=== PATIENT | male | born 1960 ===

== ENCOUNTER 2017-03-30 07:37 | Day surgery (SDC) | payer MEDICAID ==
[2014-10-06 15:14] VITALS: BMI 29.0
[2017-03-30] MEDS ORDERED: Propofol 10 mg/ml Inj (20 ML) ONE (08:55)
[2017-03-30] MEDS ORDERED: Lidocaine 1% Inj (20ml) ONE (08:55)
[2017-03-30] MEDS ORDERED: Simethicone 40 mg/0.6 ml Liquid (30 ml) ONE (09:37)
[2017-03-30] MEDS ORDERED: Sodium Chloride 0.9% 1,000 ML IV SCH (09:45)
[2017-03-30 10:26] VITALS: BP 110/69; PULSE 58; RESP 16; TEMP 97.4; O2SAT 99
== END 2017-03-30 11:15 | disposition home or self-care (01) ==
LOC: ENDO 07:37
PROVIDERS: ATTEND Internal Medicine
DX: Z12.11 Encounter for screening for malignant neoplasm of colon (principal); D12.3 Benign neoplasm of transverse colon; K63.5 Polyp of colon; K64.8 Other hemorrhoids; E11.9 Type 2 diabetes mellitus without complications; Z79.84 Long term (current) use of oral hypoglycemic drugs
CPT/HCPCS: 45380; 82948; 88305; J2704; J7040 ×2

== ENCOUNTER 2018-06-14 16:06 | Outpatient (CLI) | payer MEDICAID | END 2018-06-14 16:07 | disposition home or self-care (01) | LOC: RAD 16:06 ==

== ENCOUNTER 2018-08-26 16:25 | Outpatient (CLI) | payer MEDICAID | END 2018-08-26 16:26 | disposition home or self-care (01) | LOC: RAD 16:25 ==

== ENCOUNTER 2018-09-13 06:59 | Emergency (ER) | payer MEDICAID ==
[2018-09-13 06:59] VITALS: BMI 29.0
[2018-09-13 07:12] VITALS: TEMP 98.2
--- NOTE | 2018-09-13 08:09 | ED PDOC ---
Arrival/HPI - General Chief Complaint: ENT Problem Time Seen by Provider: 09/13/18 07:24 Historian: Patient - History of Present Illness Narrative History of Present Illness (Text): 09/13/18 07:24 Jane Joyce is a 58 year old male, with a past medical history of diabetes (on metformin) and hypertension (on lipitor) who presents to the emergency department complaining of sudden constant nosebleed since last night. Patient informs he was eating when nosebleed began and denies any trauma. Denies recent cold, sneeze, or cough. Patient informs left nostril bled more than the right. Patient appreciates no bleeding currently in the ED. He informs of no previous history of similar complaints. Denies taking blood thinners. Denies fevers, chills, nausea, vomiting, headache, dizziness, fatigue, or any other complaint. Time/Duration: 24 hours Symptom Onset: Sudden Symptom Course: Resolved Activities at Onset: Light Context: Home Past Medical History - Provider Review Nursing Documentation Reviewed: Yes - Tetanus Immunization Tetanus Immunization: Unknown - Past Medical History Past Medical History: No Previous - Cardiac Hx Pacemaker: No - Pulmonary Hx Respiratory Disorders: No - Neurological Hx Paralysis: No - HEENT Hx HEENT Disorder: No - Renal Hx Renal Disorder: No - Endocrine/Metabolic Hx Diabetes Mellitus Type 2: Yes - Hematological/Oncological Hx Blood Transfusions: No - Integumentary Hx Dermatological Disorder: No - Musculoskeletal/Rheumatological Hx Musculoskeletal Disorders: No - Gastrointestinal Hx Gastrointestinal Disorders: No - Genitourinary/Gynecological Hx Genitourinary Disorders: No - Psychiatric Hx Emotional Abuse: No Hx Physical Abuse: No Hx Substance Use: No - Past Surgical History Past Surgical History: No Previous - Anesthesia Hx Anesthesia Reactions: No Hx Malignant Hyperthermia: No - Suicidal Assessment Feels Threatened In Home Enviroment: No Family/Social History - Physician Review Nursing Documentation Reviewed: Yes Family/Social History: Unknown Family HX Smoking Status: Never Smoked Hx Alcohol Use: No Hx Substance Use: No Hx Substance Use Treatment: No Allergies/Home Meds Allergies/Adverse Reactions: Allergies Penicillins Allergy (Severe, Verified 03/24/17 11:54) RASH Home Medications: Home Meds Medication Instructions Recorded Confirmed metFORMIN [glucOPHAGE] 500 mg PO BID 03/24/17 09/13/18 Atorvastatin [Lipitor] 10 mg PO DAILY 03/30/17 09/13/18 Review of Systems - Review of Systems Constitutional: absent: Fatigue, Fevers, Other (chills, sneezing) ENT: Epistaxis Respiratory: absent: Cough, Other Gastrointestinal: absent: Nausea, Vomiting Musculoskeletal: absent: Other (head trauma) Neurological: absent: Headache, Dizziness Physical Exam Vital Signs Reviewed: Yes Vital Signs Temp Pulse Resp BP Pulse Ox 09/13/18 07:07 98.2 F 83 14 151/83 H 100 Temperature: Afebrile Blood Pressure: Normal Pulse: Regular Respiratory Rate: Normal Appearance: Positive for: Well-Appearing, Non-Toxic, Comfortable Pain Distress: None Mental Status: Positive for: Alert and Oriented X 3 - Systems Exam Head: Present: Atraumatic, Normocephalic Pupils: Present: PERRL Extroacular Muscles: Present: EOMI Conjunctiva: Present: Normal Mouth: Present: Moist Mucous Membranes Pharnyx: Present: Normal Nose (Internal): Present: Normal Inspection, No Active Bleeding, Moist, Other (dried blood) Neck: Present: Normal Range of Motion Neurological: Present: GCS=15, CN II-XII Intact, Speech Normal, Motor Func Grossly Intact, Normal Sensory Function Skin: Present: Warm, Dry, Normal Color. No: Rashes Psychiatric: Present: Alert, Oriented x 3, Normal Insight, Normal Concentration Medical Decision Making ED Course and Treatment: 09/13/18 07:24 Impression: Patient is a 58 year old male with a past medical history of diabetes (on metformin) and hypertension (on lipitor), who presents to the emergency department complaining of sudden constant nosebleed since last night. Denies head trauma. Plan: -- Reassess and disposition Prior Visits: Notes and results from previous visits were reviewed. Progress Notes: 09/13/18 08:10 Patient was observed for 1 hour; no active bleeding. Pt denies any complaints at this time. Patient instructed to follow up with PMD (Dr. Steele) and return to the emergency department for worsening symptoms. - Scribe Statement The provider has reviewed the documentation as recorded by the Scribe Ibrahima Harding All medical record entries made by the Scribe were at my direction and personally dictated by me. I have reviewed the chart and agree that the record accurately reflects my personal performance of the history, physical exam, medical decision making, and the department course for this patient. I have also personally directed, reviewed, and agree with the discharge instructions and disposition. Disposition/Present on Arrival - Present on Arrival Any Indicators Present on Arrival: No History of DVT/PE: No History of Uncontrolled Diabetes: No Urinary Catheter: No History of Decub. Ulcer: No History Surgical Site Infection Following: None - Disposition Have Diagnosis and Disposition been Completed?: Yes Diagnosis: Epistaxis Disposition: HOME/ ROUTINE Disposition Time: 08:09 Patient Plan: Discharge Condition: IMPROVED Discharge Instructions (ExitCare): Nosebleeds (DC) Referrals: Veronique Steele MD [Family Provider] - Follow up with primary Forms: [email or web address] (Swazi)
[2018-09-13 08:22] VITALS: BP 113/74; PULSE 66; RESP 18; O2SAT 97
== END 2018-09-13 08:22 | disposition home or self-care (01) ==
LOC: ED 06:59
DX: R04.0 Epistaxis (principal); E11.9 Type 2 diabetes mellitus without complications; I10 Essential (primary) hypertension; Z79.84 Long term (current) use of oral hypoglycemic drugs

== ENCOUNTER 2018-09-13 09:26 | Emergency (ER) | payer MEDICAID ==
[2018-09-13 09:27] VITALS: BMI 29.0
--- NOTE | 2018-09-13 10:51 | ED PDOC ---
Arrival/HPI - General Chief Complaint: ENT Problem Time Seen by Provider: 09/13/18 09:38 - History of Present Illness Narrative History of Present Illness (Text): 09/13/18 09:38 Patient is a 58 year old male, with a past medical history of diabetes (on m etformin) and hypertension (on lipitor) who presents to the emergency department complaining of nosebleed s/p evaluation earlier today for similar complaint. Patient informs nosebleed began after blowing and washing his nose at home. Patient also demonstrated to me how he was cleaning his nose of "dried blood" vigorously with tissues. Patient informs he spit out a blood clot. Patient's bleed stopped upon arrival to ED and is not actively bleeding currently in the ED. Patient denies headadche, dizziness, syncope, taking blood thinners, falls, fevers, chills, nausea, vomiting, chest pain, sob, fatigue, or any other complaint. Time/Duration: Prior to Arrival Symptom Onset: Sudden Activities at Onset: Light Context: Home Past Medical History - Provider Review Nursing Documentation Reviewed: Yes - Infectious Disease Hx of Infectious Diseases: None - Tetanus Immunization Tetanus Immunization: Unknown - Past Medical History Past Medical History: No Previous - Cardiac Hx Cardiac Disorders: No Hx Pacemaker: No - Pulmonary Hx Respiratory Disorders: No - Neurological Hx Paralysis: No - HEENT Hx HEENT Disorder: No - Renal Hx Renal Disorder: No - Endocrine/Metabolic Hx Diabetes Mellitus Type 2: Yes - Hematological/Oncological Hx Blood Transfusions: No - Integumentary Hx Dermatological Disorder: No - Musculoskeletal/Rheumatological Hx Musculoskeletal Disorders: No - Gastrointestinal Hx Gastrointestinal Disorders: No - Genitourinary/Gynecological Hx Genitourinary Disorders: No - Psychiatric Hx Emotional Abuse: No Hx Physical Abuse: No Hx Substance Use: No - Past Surgical History Past Surgical History: No Previous - Anesthesia Hx Anesthesia Reactions: No Hx Malignant Hyperthermia: No - Suicidal Assessment Feels Threatened In Home Enviroment: No Family/Social History - Physician Review Nursing Documentation Reviewed: Yes Family/Social History: Unknown Family HX Smoking Status: Never Smoked Hx Alcohol Use: No Hx Substance Use: No Hx Substance Use Treatment: No Allergies/Home Meds Allergies/Adverse Reactions: Allergies Penicillins Allergy (Severe, Verified 03/24/17 11:54) RASH Home Medications: Home Meds Medication Instructions Recorded Confirmed metFORMIN [glucOPHAGE] 500 mg PO BID 03/24/17 09/13/18 Atorvastatin [Lipitor] 10 mg PO DAILY 03/30/17 09/13/18 Review of Systems - Physician Review All systems were reviewed & negative as marked: Yes - Review of Systems Constitutional: absent: Fatigue, Fevers, Other (chills ) ENT: Epistaxis (w/ bloody postnasal drip, spitting up blood clot) Gastrointestinal: absent: Nausea, Vomiting Neurological: absent: Headache, Dizziness Physical Exam Vital Signs Reviewed: Yes Vital Signs Temp Pulse Resp BP Pulse Ox 09/13/18 09:31 98 F 80 18 133/82 100 Temperature: Afebrile Blood Pressure: Normal Pulse: Regular Respiratory Rate: Normal Appearance: Positive for: Well-Appearing, Non-Toxic, Comfortable Pain Distress: None Mental Status: Positive for: Alert and Oriented X 3 - Systems Exam Head: Present: Atraumatic, Normocephalic Pupils: Present: PERRL Extroacular Muscles: Present: EOMI Conjunctiva: Present: Normal Mouth: Present: Moist Mucous Membranes Pharnyx: Present: Normal, Other (no blood in posterior oropharynx) Nose (External): Present: Atraumatic Nose (Internal): Present: No Active Bleeding, Moist, Other (turbinates swollen bilaterally) Neck: Present: Normal Range of Motion Neurological: Present: GCS=15, CN II-XII Intact, Speech Normal, Motor Func Grossly Intact, Normal Sensory Function Skin: Present: Warm, Dry, Normal Color. No: Rashes Psychiatric: Present: Alert, Oriented x 3, Normal Insight, Normal Concentration Medical Decision Making ED Course and Treatment: 09/13/18 09:38 Impression: Patient is a 58 year old male, with a past medical history of diabetes (on metformin) and hypertension (on lipitor) who presents to the emergency department complaining of nosebleed s/p evaluation earlier today for similar complaint. Plan: -- Reassess and disposition Prior Visits: Notes and results from previous visits were reviewed. Progress Notes: 09/13/18 11:00 Post evaluation, advised patient against vigorously cleaning his nose. 09/13/18 11:00 Patient is sleeping. Per nurse, patient vigorously cleaned his nose s/p evaluation again against instruction. No active bleeding noted. Patient is stable for d/c home. - Scribe Statement The provider has reviewed the documentation as recorded by the Scribe Ibrahima Munafo All medical record entries made by the Elizabeth were at my direction and personally dictated by me. I have reviewed the chart and agree that the record accurately reflects my personal performance of the history, physical exam, medical decision making, and the department course for this patient. I have also personally directed, reviewed, and agree with the discharge instructions and disposition. Disposition/Present on Arrival - Present on Arrival Any Indicators Present on Arrival: No History of DVT/PE: No History of Uncontrolled Diabetes: No Urinary Catheter: No History of Decub. Ulcer: No History Surgical Site Infection Following: None - Disposition Have Diagnosis and Disposition been Completed?: Yes Diagnosis: Epistaxis Disposition: HOME/ ROUTINE Disposition Time: 11:29 Patient Plan: Discharge Condition: IMPROVED Discharge Instructions (ExitCare): Nosebleeds (DC) Additional Instructions: [facility], thank you for letting us take care of you today. Your provider was Bhavana Lakhani MD and you were treated for bleeding nose. The emergency medical care you received today was directed at your acute symptoms. Return to the Emergency Department if your symptoms worsen, do not improve, or if you have any other problems. PLEASE DO NOT INSERT ANYTHING INTO YOUR NOSE AND AVOID VIGOROUS CLEANING OF YOUR NOSE. Please contact your doctor or call one of the physicians/clinics you have been referred to that are listed on the Patient Visit Information form that is included in your discharge packet. Bring any paperwork you were given at discharge with you along with any medications you are taking to your follow up visit. Our treatment cannot replace ongoing medical care by a primary care provider outside of the emergency department. Thank you for allowing the [facility] team to be part of your care today. Forms: [employer] (Greek)
[2018-09-13 11:12] VITALS: PULSE 63; O2SAT 98
[2018-09-13 11:51] VITALS: BP 101/64; RESP 18; TEMP 97.5
== END 2018-09-13 11:52 | disposition home or self-care (01) ==
LOC: ED 09:26
DX: R04.0 Epistaxis (principal); I10 Essential (primary) hypertension; E11.9 Type 2 diabetes mellitus without complications; Z79.84 Long term (current) use of oral hypoglycemic drugs